=== PATIENT | male | born 1965 | race Caucasian/White ===

== ENCOUNTER 2019-09-29 15:47 | Emergency (ER) | payer BC ==
[2019-09-29] MEDS: Sodium Chloride 0.9% 1,000 ML IV ONE ×2 (16:15→19:49)
[2019-09-29] MEDS ORDERED: Insulin Regular, Human 100 Units/ML 3 ML Vial IV ONE (18:45)
[2019-09-29] MEDS: Lactated Ringers 1,000 ML IV SCH ×2 (19:51→19:53)
--- NOTE | 2019-09-30 07:10 | CR ---
Date of Service: 09/29/19 Clinical Data: shortness of breath PA AND LATERAL CHEST: No priors. The patient has taken a poor inspiration. The heart size is normal. There are linear densities in both lung bases consistent with linear atelectasis or fibrosis. The lungs are otherwise clear. No pneumothorax. No pleural effusions. [id number] MTDD
--- NOTE | 2019-09-30 08:32 | ER ---
REASON FOR EMERGENCY ROOM VISIT: Obtundation and weakness. HISTORY OF PRESENT ILLNESS: This 54-year-old man comes to the emergency room complaining of shortness of breath, generalized weakness, that was preceded by some symptoms of sinus congestion and coughing over the previous 2-3 weeks. He states that he has had multiple episodes of sweating. His shortness of breath has occurred over the past couple of days. He does admit to having increased polydipsia and polyuria. He denies any fever and has had some mild upper abdominal pain for the past day or so. He did have a couple of episodes of loose stools, but that was 2 weeks ago and nothing since then. He has not had any vomiting. Coworkers who work with him at [facility] in [place] have noticed that he has been coughing and looking more and more lethargic and weak. PAST MEDICAL HISTORY: Remarkably unremarkable. He states he does not go to the doctor ever. He has had an arm fracture in the past, otherwise unremarkable. MEDICATIONS: None. ALLERGIES: NONE. FAMILY HISTORY: Reviewed, noncontributory. REVIEW OF SYSTEMS: Pertinent positives and negatives as listed in the HPI. It is noteworthy that he denies any weight loss or excessive weight gain in the past few months. PHYSICAL EXAMINATION: GENERAL: Reveals a somewhat somnolent man who does respond to questions appropriately. He is very drowsy. VITAL SIGNS: He is afebrile. His heart rate was 106, blood pressure was 129/88, O2 sats 98% on room air, respiratory rate 16. HEENT: Head is normocephalic. Eyes, no scleral icterus or conjunctivitis is noted. TMs are normal. Oropharynx is dry but no erythema or exudates. NECK: Supple. No JVD. No adenopathy. CHEST: Clear to auscultation with good air exchange bilaterally. No wheezes, rhonchi, or rales. CARDIAC: Regular rate without murmur or rub. ABDOMEN: Mildly distended and obese. He does have some tenderness that is poorly localized in the epigastrium. There is no rebound or guarding or percussion tenderness. No palpable masses are noted. EXTREMITIES: Normal pulses. No edema. There is no cyanosis. Good capillary refill is noted. SKIN : No rashes. No ecchymoses or purpura. NEUROLOGIC: He moves all 4 extremities to command. He responds appropriately to verbal stimulation and pain. LABORATORY DATA: His CBC shows that he has a leukocytosis of 27.2. His hemoglobin is 14.5. His platelet count is 475,000. His CMP reveals a blood glucose of 1,004 and his sodium is 131, potassium is elevated at 6.0, chloride is 93, CO2 is 17.7, anion gap is elevated at 26.3. His creatinine is 2.7 with a BUN of 59. His lactic acid is elevated at 8.1, his calcium is normal at 8.8. His total bilirubin is 2.0. His AST is 67 with an ALT of 112 and elevated alkaline phosphatase at 282. His albumin is 1.6, and his amylase is 276. His lipase, however, is markedly elevated at 2,771. His urine is clear with a specific gravity of 1.010. He does have glycosuria, but he has no ketonuria. Nasopharyngeal swab was negative for influenza A or B. His Monospot was negative. Chest x-ray was done , shows no active pulmonary disease FURTHER EMERGENCY ROOM COURSE: Two large-bore IVs were inserted, and he was aggressively hydrated with normal saline. After the first liter or so, he received 10 units of regular Humulin insulin IV and an IV insulin drip at 10 units/hour was initiated. Altogether at this point, he has received over 2 L of IV fluid, and he is on third liter. We switched him over to lactated Ringer's. I spoke to the hospitalist in [place], Dr. Rivas, who urged us to proceed with a CT scan of his abdomen and pelvis without contrast and pending the results of this, agreed to take him in transfer. We went ahead and did this, and it did show that he had masses in his liver measuring up to 6.7 cm in diameter. The radiologist could not ascertain whether these represented metastatic lesions or simple cysts. Remainder of the findings were largely unremarkable. There was no significant free fluid. There was a duodenal diverticulum noted. The pancreas itself looked normal. He did have a 1 cm left adrenal adenoma and a duodenal diverticulum. No abnormalities of his gallbladder or biliary ducts were noted. There were no remarkable findings in his pelvis. He did have what appeared to be some thickening of the small bowel, which may be due to ileus. These findings were relayed to Dr. Rivas, who agreed to accept him in transfer. He will be going to [place] by fixed air. We will continue the insulin drip and slow down his IV fluids. A Rhodes catheter was inserted to obtain his urine and to monitor his urine output , and he has put out over 800 mL of urine since he came in. A repeat blood glucose was obtained approximately 1/2 hour after his IV insulin, and it had decreased down to 935, so we are headed in the right direction in that regard. IMPRESSION: Diabetic ketoacidosis, but the underlying etiology remains to be determined. At this point, no septic focus can be identified, and therefore things like underlying malignancy, etc. need to be ruled out with further imaging. I explained all this to the patient and the necessity for transferring him where he will be going to intensive care unit. He understands and agrees. He understands that there are risks inherent in such a transfer and agrees with this plan. All questions were answered. STEF /[id number] ÓSCAR
--- NOTE | 2019-09-30 08:53 | CT ---
Date of Service: 09/29/19 Clinical Data: pain UNENHANCED ABDOMEN AND PELVIC CT: Multislice acquisition through the abdomen and pelvis without IV or oral contrast was performed. No priors. There are mild atelectatic changes in both lung bases. The lung bases are otherwise clear. The heart size is normal. The liver is abnormal. There are multiple low-density lesions scattered throughout the right and left lobes of the liver. The largest measures 7.6 cm axially. Their margins are somewhat irregular and they do not have characteristics of benign cysts. Hepatic metastatic disease is suspected. The gallbladder is not adequately seen. The spleen appears normal. The pancreas appears normal. There is an 11 mm low- density lesion in the left adrenal which is most likely benign. The right and left adrenals otherwise appear normal. The right and left kidneys appear normal. No nephrocalcinosis or nephrolithiasis. No hydronephrosis or hydroureter. There is a Rhodes catheter within the bladder. The bladder is decompressed. There is a small amount of free fluid noted within the pelvis. There is also free fluid noted in the paracolic gutters and adjacent to the spleen consistent with ascites. There is mild fat stranding of the mesentery. An infectious or inflammatory process should be considered. There are also multiple loops of small bowel with apparent mural thickening. Enteritis should be considered. No free air. No dilated loops of bowel. No adenopathy. No aortic aneurysm. There are subtle lucent lesions within the right and left ilium. There are 2 small sclerotic lesions in the femoral neck and femoral head on the left. There is degenerative disk disease throughout the lower thoracic and lumbar spine. No other significant findings. IMPRESSION: Abnormal exam. Multiple low-density lesions in liver. Hepatic metastatic disease is suspected. Hepatic CT with contrast is recommended. Ascites. Multiple other findings as discussed above. [id number] MTDD
== END 2019-09-29 21:05 ==
LOC: LB.ED 15:47
DX: E11.10 Type 2 diabetes mellitus with ketoacidosis without coma (principal)
CPT/HCPCS: 36415; 51702; 71046; 74176; 80053; 81003; 82150; 82803; 82947; 82962; 83605; 83690; 85025; 86308; 87804; 87804-59; 93005; 96360; 99285; 99285-25; A0425; A0429; J7030; J7120